=== PATIENT | male | born 1955 | race Caucasian/White ===

== ENCOUNTER 2016-06-24 14:14 | Emergency (ER) | payer BC, OTHER ==
[2016-06-24 14:19] VITALS: BP 153/99; PULSE 67; TEMP 97.5; BMI 25.7
[2016-06-24] MEDS ORDERED: HYDROmorphone HCL CARPU-JECT 1 MG/1 ML DISP.SYRIN IVPUSH ONE (14:28)
[2016-06-24] MEDS ORDERED: KETOROLAC TROMETHAMINE 30 MG/1 ML VIAL IVPUSH ONE (14:28)
[2016-06-24] MEDS ORDERED: ONDANSETRON 4 MG/2 ML VIAL IVPB ONE (14:28)
[2016-06-24] MEDS ORDERED: SODIUM CHLORIDE 1,000 ML IV SCH (14:30)
--- NOTE | 2016-06-24 14:32 | PDOC ---
History of Present Illness - General History Source: Patient, Spouse Exam Limitations: No Limitations <Benja Dominguez - Last Filed: 06/24/16 14:47> - History of Present Illness Initial Comments: 06/24/16 14:47 General History Source: Patient, Spouse Exam Limitations: No Limitations - History of Present Illness Initial Comments: 06/24/16 14:43 The patient is a 60 year old male with past medical history of HTN and recurrent migraines. Patient reports his migraines are usually controlled with Maxalt He notes that approx. once a year he gets a migraine that is very severe, accompanied by vomiting, and not controlled by Maxil Patient presents to ER accompanied by . He states that he has had one of his more severe migraines since 6 am this morning He states migraine is diffuse and systemic He reports associated vomiting, neck pain, puffy gut, unsteady gait He states these are the symptoms he usually has when he gets like this, and there is no change from his usual presentation He denies photophobia, double vision, and blurred vision He denies fever and/or chills He states he has had a CT scan for history of migraine in past He is seen regularly by neurologist Dr. Melvin He has had a recent check up with straightener and aligner and has normal carotid arteries <Benja Dominguez - Last Filed: 06/24/16 14:44> <Irma Massey - Last Filed: 06/27/16 08:44> - General Chief Complaint: Migraine Headache Stated Complaint: MIGRAINE Time Seen by Provider: 06/24/16 14:20 Past History <Benja Dominguez - Last Filed: 06/24/16 14:47> - Past Medical History HTN: Yes Other medical history: MIGRAINES - Psycho/Social/Smoking Cessation Hx Anxiety: No Suicidal Ideation: No Smoking History: Never smoked Hx Alcohol Use: Yes Drug/Substance Use Hx: No Substance Use Type: None <Irma Massey - Last Filed: 06/27/16 08:44> - Past Medical History Allergies/Adverse Reactions: Allergies Allergy/AdvReac Type Severity Reaction Status Date / Time No Known Allergies Allergy Verified 06/24/16 14:15 Home Medications: Ambulatory Orders NK [No Known Home Medication] 06/24/16 *Physical Exam - Vital Signs Last Vital Signs Temp Pulse Resp BP Pulse Ox 97.5 F L 67 16 153/99 100 06/24/16 14:15 06/24/16 14:15 06/24/16 14:15 06/24/16 14:15 06/24/16 14:15 <Benja Dominguez - Last Filed: 06/24/16 14:47> - Vital Signs Last Vital Signs Temp Pulse Resp BP Pulse Ox 97.5 F L 67 16 153/99 100 06/24/16 14:15 06/24/16 14:15 06/24/16 14:15 06/24/16 14:15 06/24/16 14:15 - Physical Exam Comments: 06/24/16 14:29 Physical exam Last Vital Signs Temp Pulse Resp BP Pulse Ox 97.5 F L 67 16 153/99 100 06/24/16 14:15 06/24/16 14:15 06/24/16 14:15 06/24/16 14:15 06/24/16 14:15 GENERAL: The patient is awake, alert, and fully oriented, and answering questions HEAD: Normal with no signs of trauma. EYES: Pupils equal, round and reactive to light, extraocular movements intact, sclera anicteric, conjunctiva are normal. ENT: Moist mucous membranes. NECK: Normal range of motion, supple without meningismus LUNGS: Breath sounds equal, clear to auscultation bilaterally. No wheezes, and no crackles. HEART: Regular rate and rhythm, normal S1 and S2 without murmur, rub or gallop. ABDOMEN: Soft, nontender, normoactive bowel sounds. No guarding, no rebound. No masses appreciated. EXTREMITIES: Normal range of motion, no edema. No clubbing or cyanosis. No cords, erythema, or tenderness. NEURO: Mental status: The patient is oriented x3. Cranial nerves: Cranial nerves II through XII are intact Motor: The upper extremities are 5 over 5 in all muscle groups. The lower extremities are 5 over 5 in all muscle groups. Sensation: Sensation is intact to light touch throughout. Gait: Normal. Heel and toe walking are normal. Tandem gait is normal. Grossly nonfocal neurologic exam PSYCH: Normal mood, normal affect. SKIN: Warm, Dry, <Irma Massey - Last Filed: 06/27/16 08:44> ED Treatment Course - LABORATORY CBC & Chemistry Diagram: 06/24/16 14:30 06/24/16 14:33 <Benja Dominguez - Last Filed: 06/24/16 14:47> - LABORATORY CBC & Chemistry Diagram: 06/24/16 14:30 06/24/16 14:33 <Irma Massey - Last Filed: 06/27/16 08:44> Medical Decision Making - Medical Decision Making 06/24/16 14:31 60-year-old male with chronic migraines, who is followed by a neurologist, The migraines are usually aborted by Maxalt However about once a year he gets a more severe migraine, which prompted him to come into the emergency department, associated with severe diffuse headache vomiting, another migraine-type symptoms He has no focal complaints, no fever, no recent head trauma, and no meningismus He has had prior imaging, and is followed regularly by a neurologist 06/24/16 15:55 Patient feeling much better, headache is completely resolved, he feels hungry, and wants to go home Will follow-up with his neurologist 06/24/16 15:56 Laboratory Results - last 24 hr 06/24/16 06/24/16 14:30 14:33 WBC 9.3 RBC 4.68 Hgb 15.7 Hct 44.5 MCV 95.0 MCHC 35.3 RDW 12.0 Plt Count 202 MPV 7.4 L Sodium 135 L Potassium 3.8 Chloride 104 Carbon Dioxide 24 Anion Gap 7 L BUN 12 Creatinine 0.9 Creat Clearance w eGFR > 60 Random Glucose 168 H Calcium 9.2 Total Bilirubin 1.0 AST 35 ALT 28 Alkaline Phosphatase 58 Total Protein 7.8 Albumin 4.7 Ambulatory with normal gait without difficulty <Irma Massey - Last Filed: 06/27/16 08:44> *DC/Admit/Observation/Transfer - Attestations Scribe Attestion: 06/24/16 14:44 Documentation prepared by Benja Dominguez, acting as medical practice administrator for Irma Mittal MD. <Benja Dominguez - Last Filed: 06/24/16 14:47> <Irma Massey - Last Filed: 06/27/16 08:44> Diagnosis at time of Disposition: Migraine headache - Discharge Dispostion Disposition: HOME Condition at time of disposition: Improved - Referrals Referrals: Curtis Hernandez MD [Primary Care Provider] - - Patient Instructions Printed Discharge Instructions: Migraine -- Adult, DI for Migraine Additional Instructions: Followup with your primary care physician in 24-48 hours Please call your neurologist for a follow-up appointment Return immediately if you worsen in any way Take your medications as directed - Post Discharge Activity Work/School Note: Back to Work
[2016-06-24 14:40] LABS: MCH 33.6 pg (25.7-33.7); MCHC 35.3 g/dl (32.0-35.9); MEAN PLT VOLUME 7.4 fl (7.5-11.1); PLATELET COUNT 202 K/MM3 (134-434); WHITE BLOOD COUNT 9.3 K/mm3 (4.0-10.0)
[2016-06-24 15:06] LABS: ALBUMIN 4.7 g/dl (3.5-5.0); ALK PHOS 58 U/L (32-92); ANION GAP 7 (8-16); CALCIUM 9.2 mg/dl (8.4-10.2); CO2 24 mmol/L (22-28); CREATININE 0.9 mg/dl (0.6-1.3); GLUCOSE,RANDOM 168 mg/dl (74-106); SGOT/AST 35 U/L (10-42); SGPT/ALT 28 U/L (10-40); TOT PROT 7.8 g/dl (6.4-8.3)
== END 2016-06-24 16:09 | disposition home or self-care (01) ==
LOC: FER 14:14
PROC: 3E033NZ Introduction of Analgesics, Hypnotics, Sedatives into Peripheral Vein, Percutaneous Approach (ICD-10-PCS; principal; 2016-06-24)
PROC: 3E0333Z Introduction of Anti-inflammatory into Peripheral Vein, Percutaneous Approach (ICD-10-PCS; 2016-06-24)
PROC: 3E033GC Introduction of Other Therapeutic Substance into Peripheral Vein, Percutaneous Approach (ICD-10-PCS; 2016-06-24)
DX: G43.909 Migraine, unspecified, not intractable, without status migrainosus (principal); I10 Essential (primary) hypertension
CPT/HCPCS: 36415; 80053; 85027; 99282-25